=== PATIENT | female | born 1980 | race Caucasian/White ===

== ENCOUNTER 2022-02-01 13:57 | Emergency (ER) | payer OTHER ==
--- NOTE | 2022-02-01 14:39 | ERPHSYRPT ---
- History of Present Illness Historian: patient Exam Limitations: no limitations Patient Subjective Stated Complaint: pt states "I have had this sharp pain in my stomach for the past 2 days. I was suppose to go have an ultrasound sound a week ago but didn't go to it." Triage Nursing Assessment: pt ambulated into the er; pt is axo x4; c/o abd pain; 8/10 pain to upper epi gastric region; abd is round, soft, tender; hyperactive bowel in all quads; pt denies V/D; c/o nausea; mucus member pink and moist; vitals wnl Physician History: 41 yo wf w RUQ pain x 1wk. Pt was scheduled for RUQ US but missed her appointment. Pain is 8/10 and stabbing. She has had nausea wo vomiting/diarrhea/dysuria/hematuria/fever/chest pain. She has had an appendecto my and [facility]. Timing/Duration: week(s) (1wk) Activities at Onset: rest Quality: sharpness, stabbing Abdominal Pain Onset Location: RUQ Pain Radiation: no radiation Severity of Pain-Max: severe Severity of Pain-Current: severe Modifying Factors: Worsens With: analgesics, antacids, breathing, coughing, defecating, eating, exercise, lying down, movement, palpation, rest, urinating, vomiting, position, walking Associated Symptoms: nausea, No back, No chest pain, No diaphoresis, No diarrhea, No fever/chills, No fatigue, No headache, No heartburn, No loss of appetite, No neck pain, No rash, No shortness of breath, No syncope, No vomiting, No weakness Previous symptoms: same symptoms as today Allergies/Adverse Reactions: No Known Drug Allergies Allergy (Unverified 02/01/22 14:06) Hx Tetanus, Diphtheria Vaccination/Date Given: No Hx Influenza Vaccination/Date Given: Yes Hx Pneumococcal Vaccination/Date Given: No Immunizations Up to Date: Yes Travel Risk - International Travel Have you traveled outside of the country in past 3 weeks: No - Coronavirus Screening Are you exhibiting any of the following symptoms?: No Close contact with a COVID-19 positive Pt in past 14-21 Days: No - Vaccine Status Have you recieved a Covid-19 vaccination: Yes 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: [employer] - Vaccination Dates Date of 2cond Vaccination (if applicable): 12/01 - Review of Systems Constitutional: No Symptoms Eyes: No Symptoms Ears, Nose, & Throat: No Symptoms Respiratory: No Symptoms Cardiac: No Symptoms Abdominal/Gastrointestinal: No Symptoms, Abdominal Pain, Nausea Genitourinary Symptoms: No Symptoms Musculoskeletal: No Symptoms Skin: No Symptoms Neurological: No Symptoms Psychological: No Symptoms Endocrine: No Symptoms Hematologic/Lymphatic: No Symptoms Immunological/Allergic: No Symptoms - Past Medical History Pertinent Past Medical History: Yes Neurological History: Migraines ENT History: No Pertinent History Cardiac History: No Pertinent History Respiratory History: No Pertinent History Endocrine Medical History: No Pertinent History Musculoskeletal History: Degenerative Disk Disease GI Medical History: GERD History: No Pertinent History Psycho-Social History: Anxiety, Bipolar, Depression Female Reproductive Disorders: No Pertinent History - Past Surgical History Past Surgical History: Yes Neuro Surgical History: No Pertinent History Cardiac: No Pertinent History Respiratory: No Pertinent History Gastrointestinal: Appendectomy Genitourinary: No Pertinent History Musculoskeletal: No Pertinent History Female Surgical History: Hysterectomy Other Surgical History: breast reduction - Social History Smoking Status: Never smoker Exposure to second hand smoke: No Drug Use: methamphetamines Patient Lives Alone: No Significant Family History: no pertinent family hx - Female History Hx Now: No - Nursing Vital Signs Nursing Vital Signs: Initial Vital Signs Temperature 96.7 F 02/01/22 14:07 Pulse Rate 94 H 02/01/22 14:07 Respiratory Rate 14 02/01/22 14:07 Blood Pressure 121/86 02/01/22 14:07 O2 Sat by Pulse Oximetry 100 02/01/22 14:07 Pain Scale Pain Intensity 6 WNL - Physical Exam General Appearance: no apparent distress Eye Exam: PERRL/EOMI, eyes nml inspection Ears, Nose, Throat Exam: normal ENT inspection, TMs normal, pharynx normal, moist mucous membranes Neck Exam: normal inspection, non-tender, supple, full range of motion, No meningismus, No mass, No Brudzinski, No Kernig's, No carotid bruit Respiratory Exam: normal breath sounds, lungs clear, airway intact Cardiovascular Exam: regular rate/rhythm, normal heart sounds, normal peripheral pulses, capillary refill <2 sec, No murmur Gastrointestinal/Abdomen Exam: soft, tenderness (Mild RUQ ttp wo guarding or rebound) Back Exam: normal inspection, normal range of motion, No CVA tenderness, No vertebral tenderness Extremity Exam: normal inspection, normal range of motion Neurologic Exam: alert, oriented x 3, 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, 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, normal mood/affect, nml cerebellar function, nml station & gait, sensation nml Skin Exam: normal color, warm, dry Lymphatic Exam: No adenopathy SpO2 Interpretation: normal SpO2: 100 O2 Delivery: Room Air - Course Nursing assessment & vital signs reviewed: Yes - CT Exams Abdomen/Pelvis CT Interpretation: Discussed w/radiologist (Mod fecal stasis) - Radiology Ultrasound Exam Gallbladder Ultrasound: discussed w/radiologist (WNL) Ordered Tests: Active Orders 24 hr Category Date Time Status ABDOMEN AND PELVIS W CONTRAST [CT] Stat Exams 02/01/22 16:17 Taken ABDOMINAL-LIMITED [US] Stat Exams 02/01/22 15:25 Completed AMYLASE Stat Lab 02/01/22 14:40 Completed CBC W DIFF Stat Lab 02/01/22 14:40 Completed CMP Stat Lab 02/01/22 14:40 Completed LIPASE Stat Lab 02/01/22 14:40 Completed TROPONIN Q3H Lab 02/01/22 14:40 Completed TROPONIN Q3H Lab 02/01/22 18:20 Completed Medication Summary Discontinued Medications Generic Name Dose Route Start Last Admin Trade Name Freq PRN Reason Stop Dose Admin Dicyclomine HCl 20 mg 02/01/22 22:00 02/01/22 18:21 Dicyclomine Hcl 20 Mg Tablet PO 03/03/22 21:59 20 mg QID ZAINAB Administration Dicyclomine HCl Confirm 02/01/22 18:20 Dicyclomine Hcl 20 Mg Tablet Administered 02/01/22 18:21 Dose 20 mg .ROUTE .STK-MED ONE Ketorolac Tromethamine 30 mg 02/01/22 15:28 02/01/22 15:29 Ketorolac Tromethamine 30 Mg/Ml Inj IV 02/01/22 15:29 30 mg STAT ONE Administration Ketorolac Tromethamine Confirm 02/01/22 15:28 Ketorolac Tromethamine 30 Mg/Ml Inj Administered 02/01/22 15:29 Dose 30 mg .ROUTE .STK-MED ONE Lab/Rad Data: Laboratory Result Diagrams 02/01/22 14:40 02/01/22 14:40 Laboratory Results 02/01/22 02/01/22 02/01/22 Range/Units 18:20 14:54 14:40 WBC (4.0-10.5) K/mm3 RBC (4.1-5.4) M/mm3 Hgb (12.0-16.0) gm/dl Hct (35-47) % MCV (78-100) fl MCH (26-32) pg MCHC (32-36) g/dl RDW (11.5-14.0) % Plt Count (150-450) K/mm3 MPV (7.5-11.0) fl Gran % (36.0-66.0) % Eos # (Auto) (0-0.5) Absolute Lymphs (auto) (1.0-4.6) Absolute Monos (auto) (0.0-1.3) Lymphocytes % (24.0-44.0) % Monocytes % (0.0-12.0) % Eosinophils % (0.00-5.0) % Basophils % (0.0-0.4) % Absolute Granulocytes (1.4-6.9) Basophils # (0-0.4) Sodium (137-145) mmol/L Potassium (3.5-5.1) mmol/L Chloride (98-107) mmol/L Carbon Dioxide (22-30) mmol/L Anion Gap (5-15) MEQ/L BUN (7-17) mg/dL Creatinine (0.52-1.04) mg/dL Estimated GFR ML/MIN Glucose (74-106) mg/dL Calcium (8.4-10.2) mg/dL Total Bilirubin (0.2-1.3) mg/dL AST (14-36) U/L ALT (0-35) U/L Alkaline Phosphatase (38-126) U/L Troponin I < 0.012 < 0.012 (0.000-0.034) ng/mL Serum Total Protein (6.3-8.2) g/dL Albumin (3.5-5.0) g/dL Amylase (30-110) U/L Lipase (23-300) U/L Urinalys Dipstick Clnc MAIN LAB Urine Color YELLOW (YELLOW) Urine Appearance CLEAR (CLEAR) Urine pH 6.5 (5-6) Ur Specific Odon 1.020 (1.005-1.025) POC Urine Protein Conf NEGATIVE (Negative) Urine Ketones TRACE (NEGATIVE) Urine Nitrite NEGATIVE (NEGATIVE) Urine Bilirubin NEGATIVE (NEGATIVE) Urine Urobilinogen 0.2 (0-1) mg/dL Urine Leukocytes NEGATIVE (NEGATIVE) Urine WBC (Auto) NONE (0-5) /HPF Urine RBC (Auto) NONE (0-2) /HPF U Epithel Cells (Auto) RARE (FEW) /HPF Urine Bacteria (Auto) NONE (NEGATIVE) /HPF Urine RBC NEGATIVE (0-5) Magan/ul Urine Mucus (Auto) SLIGHT (NEGATIVE) /HPF Ur Culture Indicated? NO Urine Glucose NEGATIVE (NEGATIVE) mg/dL 02/01/22 02/01/22 Range/Units 14:40 14:40 WBC 6.0 (4.0-10.5) K/mm3 RBC 3.63 L (4.1-5.4) M/mm3 Hgb 10.9 L (12.0-16.0) gm/dl Hct 34.6 L (35-47) % MCV 95.3 (78-100) fl MCH 30.0 (26-32) pg MCHC 31.5 L (32-36) g/dl RDW 13.4 (11.5-14.0) % Plt Count 229 (150-450) K/mm3 MPV 10.7 (7.5-11.0) fl Gran % 48.1 (36.0-66.0) % Eos # (Auto) 0.13 (0-0.5) Absolute Lymphs (auto) 2.51 (1.0-4.6) Absolute Monos (auto) 0.46 (0.0-1.3) Lymphocytes % 41.8 (24.0-44.0) % Monocytes % 7.7 (0.0-12.0) % Eosinophils % 2.2 (0.00-5.0) % Basophils % 0.2 (0.0-0.4) % Absolute Granulocytes 2.89 (1.4-6.9) Basophils # 0.01 (0-0.4) Sodium 138 (137-145) mmol/L Potassium 3.9 (3.5-5.1) mmol/L Chloride 105 (98-107) mmol/L Carbon Dioxide 24 (22-30) mmol/L Anion Gap 13.1 (5-15) MEQ/L BUN 14 (7-17) mg/dL Creatinine 0.78 (0.52-1.04) mg/dL Estimated GFR > 60.0 ML/MIN Glucose 114 H (74-106) mg/dL Calcium 8.7 (8.4-10.2) mg/dL Total Bilirubin 0.20 (0.2-1.3) mg/dL AST 20 (14-36) U/L ALT 13 (0-35) U/L Alkaline Phosphatase 53 (38-126) U/L Troponin I (0.000-0.034) ng/mL Serum Total Protein 6.6 (6.3-8.2) g/dL Albumin 3.8 (3.5-5.0) g/dL Amylase 70 (30-110) U/L Lipase 223 (23-300) U/L Urinalys Dipstick Clnc Urine Color (YELLOW) Urine Appearance (CLEAR) Urine pH (5-6) Ur Specific Odon (1.005-1.025) POC Urine Protein Conf (Negative) Urine Ketones (NEGATIVE) Urine Nitrite (NEGATIVE) Urine Bilirubin (NEGATIVE) Urine Urobilinogen (0-1) mg/dL Urine Leukocytes (NEGATIVE) Urine WBC (Auto) (0-5) /HPF Urine RBC (Auto) (0-2) /HPF U Epithel Cells (Auto) (FEW) /HPF Urine Bacteria (Auto) (NEGATIVE) /HPF Urine RBC (0-5) Magan/ul Urine Mucus (Auto) (NEGATIVE) /HPF Ur Culture Indicated? Urine Glucose (NEGATIVE) mg/dL - Progress Progress Note: 02/01/22 18:16 30mg IV Toradol w improvement in pain 02/01/22 19:00 Bentyl 20mg po x1 Counseled pt/family regarding: lab results, diagnosis, need for follow-up, rad results - Departure Departure Disposition: Home Clinical Impression: Abdominal pain, Constipation Condition: Stable Critical Care Time: No Referrals: ARNEL MEDINA MD [Primary Care Provider] - Follow up/PCP as directed Instructions: Constipation, Adult (DC), Acute Abdomen (Belly Pain), Adult (DC) Additional Instructions: Follow up with your family MD Return to ER for increasing pain or temperature greater than 100.5 Try a mild laxative Bentyl as needed for pain Forms: Work/School Release Form Prescriptions: Dicyclomine HCl 20 mg [Bentyl 20 mg] 20 mg PO Q4HPRN PRN #14 tablet PRN Reason: Pain
[2022-02-01 15:11] LABS: Appearance CLEAR (CLEAR); Bilirubin NEGATIVE (NEGATIVE); Dipstick done @ ? MAIN LAB; Glucose NEGATIVE (NEGATIVE); Ketones TRACE (NEGATIVE); Nitrite NEGATIVE (NEGATIVE); Ph 6.5 (5-6); Protein,Urine Dip NEGATIVE (Negative); RBC NEGATIVE Ery/ul (0-5); Urobilinogen 0.2 mg/dL (0-1)
[2022-02-01 15:14] LABS: ALBUMIN 3.8 g/dL (3.5-5.0); ALKALINE PHOSPHATASE 53 U/L (38-126); AMYLASE 70 U/L (30-110); ANION GAP 13.1 MEQ/L (5-15); BLOOD UREA NITROGEN 14 mg/dL (7-17); CHLORIDE 105 mmol/L (98-107); Calcium 8.7 mg/dL (8.4-10.2); Carbon Dioxide 24 mmol/L (22-30); Creatinine 1 0.78 mg/dL (0.52-1.04); EST GLOMERULAR FILTRATION RATE > 60.0 ML/MIN; Glucose 114 mg/dL (74-106); LIPASE 223 U/L (23-300); Potassium 3.9 mmol/L (3.5-5.1); SGOT/AST 20 U/L (14-36); SGPT/ALT 13 U/L (0-35); SODIUM 138 mmol/L (137-145); Total Protein 6.6 g/dL (6.3-8.2)
[2022-02-01 15:21] LABS: Absolute Neutrophil Ct (ANC) 2.89 (1.4-6.9); Basophil (Absolute #) 0.01 (0-0.4); Eosinophil % 2.2 % (0.00-5.0); Eosinophil (Absolute #) 0.13 (0-0.5); Hematocrit 34.6 % (35-47); Hemoglobin 10.9 gm/dl (12.0-16.0); Lymphocyte (Absolute #) 2.51 (1.0-4.6); Lymphocytes % 41.8 % (24.0-44.0); Mean Cell Volume 95.3 fl (78-100); Mean Corpuscular Hgb Concent. 31.5 g/dl (32-36); Mean Platelet Volume 10.7 fl (7.5-11.0); Monocyte (Absolute #) 0.46 (0.0-1.3); Monocytes % 7.7 % (0.0-12.0); Neutrophil % 48.1 % (36.0-66.0); Platelet Count 229 K/mm3 (150-450); Red Blood Count 3.63 M/mm3 (4.1-5.4); Red Cell Distribution Width 13.4 % (11.5-14.0)
[2022-02-01 15:21] LABS: Epithelial Cells RARE /HPF (FEW); Mucus SLIGHT /HPF (NEGATIVE)
[2022-02-01] MEDS ORDERED: TORAdol 30 mg Injection ONE (15:28)
[2022-02-01] MEDS ORDERED: TORAdol 30 mg Injection IV ONE (15:28)
[2022-02-01 15:34] LABS: Urine Cultured Indicated? NO
--- NOTE | 2022-02-01 16:28 | XRAY ---
Indication: Right upper quadrant pain. Two-dimensional right upper quadrant abdominal sonogram performed. Comparison: None Gallbladder normally distended without gallstones, wall thickening, or pericholecystic fluid. Common bile duct measures 3.5 mm. No intrahepatic biliary distention. Remaining visualized liver and right kidney are sonographically unremarkable. Right kidney measures 11.3 cm in length. Pancreas obscured due to overlying bowel gas. Impression: Nonvisualization pancreas. Remaining right upper quadrant sonogram is negative.
[2022-02-01] MEDS ORDERED: BENTYL 20 MG ONE (18:20)
[2022-02-01 18:28] VITALS: BP 122/80; PULSE 88
[2022-02-01 19:01] VITALS: O2SAT 100
[2022-02-01] MEDS ORDERED: BENTYL 20 MG PO SCH (22:00)
--- NOTE | 2022-02-02 08:44 | XRAY ---
Indication: Right upper quadrant pain. Nausea. Multiple contiguous axial images obtained through the abdomen and pelvis using 80 cc Isovue 370 contrast. Comparison: None Lung bases clear. Heart not enlarged. Stomach is distended with food/fluid. Noncontrasted stomach and bowel loops appear nonobstructed. There is moderate diffuse scattered colonic fecal debris throughout. Appendectomy and hysterectomy reported. No free fluid/air. Gallbladder partially contracted without gallstones. Remaining liver, gallbladder, pancreas, spleen, adrenal glands, kidneys, ureters, bladder, and aorta appear unremarkable. No pathologic retroperitoneal lymphadenopathy. Osseous structures intact. No ventral or inguinal hernias. Impression: 1. Diffuse fecal stasis. 2. Remaining CT abdomen/pelvis with contrast exam is negative.
== END 2022-02-01 18:33 | disposition home or self-care (01) ==
LOC: ED 13:57
DX: K59.00 Constipation, unspecified (principal); R10.11 Right upper quadrant pain; R11.0 Nausea; K21.9 Gastro-esophageal reflux disease without esophagitis
CPT/HCPCS: 36415; 74177; 76705; 80053; 81015; 82150; 83690; 84484; 85025; 96374; 99284; J1885; A9270-GY

== ENCOUNTER 2022-09-17 06:40 | Day surgery (SDC) | payer BC, OTHER ==
[2022-09-17] MEDS ORDERED: Lactated Ringers 1,000 ML IV ONE ×3 (06:55→13:55)
[2022-09-17] MEDS ORDERED: CEFAZOLIN 2 GM-D5W BAG** 2 GM/50 ML ML IV ONE (07:05)
[2022-09-17] MEDS ORDERED: Lactated Ringers 1,000 ML IV SCH (07:30)
[2022-09-17] MEDS ORDERED: CEFAZOLIN 2 GM-D5W BAG** 2 GM/50 ML ML IV SCH (07:30)
[2022-09-17] MEDS ORDERED: VERSED 5 MG/5 ML ONE (09:14)
[2022-09-17] MEDS ORDERED: Marcaine 0.5%/Epinephrine 10 ML ONE (09:51)
[2022-09-17] MEDS ORDERED: Xylocaine-Mpf 2% 5 Ml Vial ONE (09:51)
[2022-09-17 14:15] LABS: Appearance CLEAR (CLEAR); Glucose NEGATIVE (NEGATIVE)
[2022-09-17 14:16] LABS: Bilirubin NEGATIVE (NEGATIVE); Dipstick done @ ? MAIN LAB; Ketones TRACE (NEGATIVE); Nitrite NEGATIVE (NEGATIVE); Protein,Urine Dip NEGATIVE (Negative); RBC NEGATIVE Ery/ul (0-5); Urobilinogen 0.2 mg/dL (0-1)
--- NOTE | 2022-09-17 15:02 | XRAY ---
Indication: Right gastrocnemius resection with calcaneal autographed, tarsometatarsal arthrodesis, and tailor's bunion correction. Intraoperative fluoroscopy provided for 6 minutes 31 seconds. 32 digital spot images submitted for interpretation demonstrates 1st-3rd tarsometatarsal fusion with multiple fixation plates/screws and osteotomy distal 5th metatarsal with bridging fixation plate/screws. Correlate with intraoperative findings/report.
[2022-09-17 16:49] VITALS: BP 106/67; PULSE 97; O2SAT 97
--- NOTE | 2022-09-20 09:46 | XRAY ---
6 minutes and 31 seconds of fluoroscopy was used in surgery for a right foot gastrocnemius resection with calcaneal autographed, tarsometatarsal arthrodesis, and tailor's bunion correction.
--- NOTE | 2022-09-20 09:46 | OP ---
SURGERY DATE/TIME: 09/17/2022 1034 PREOPERATIVE DIAGNOSES: 1) Gastrocnemius equinus. 2) Metadductus. 3) Equinus peroneus brevis. 4) Rheumatoid arthritis. 5) Right foot pain. POSTOPERATIVE DIAGNOSES: 1) Gastrocnemius equinus. 2) Metadductus. 3) Equinus peroneus brevis. 4) Rheumatoid arthritis. 5) Right foot pain. PROCEDURES: 1) Gastrocnemius resection, right. 2) Calcaneal autograft. 3) Multiple transverse tarsometatarsal joint arthrodesis with correction of bunion and metadductus deformity. 4) Correction of Tailor's bunion. SURGEON: John Dalton DPM. GAS CUTTING MACHINE OPERATOR: None. ANESTHESIA: General plus a preoperative popliteal and adductor canal block. See anesthesia report for details. HEMOSTASIS: Thigh tourniquet set to 350 mm of Mercury for approximately 144 total tourniquet time minutes with a 15 minute break at the 2 hour richie. ESTIMATED BLOOD LOSS: Less than 15 cc. MATERIALS: Tran 3.5 inline fusion with a 4.0 x 36 headed fully threaded cannulated screw. Two - 2.5 ALPS inline screws and one - 1.5 ALPS small T-plate with 1 cc of Bonus Triad as well as bone marrow aspirate. INJECTABLES: See anesthesia report for details. INDICATION FOR SURGERY: Jerome is a very pleasant 41-year-old female patient who is known to my service for pain associated with a bunion as well as Tailor's bunion to the right lower extremity. X-rays were taken and her condition was discussed demonstrating that the patient does not only have just a bunion but she also does have metadductus which is driving the majority of her pain at the forefoot. Discussion regarding the options of treatment. The patient has exhausted all conservative modalities of treatment at this time including but not limited to accommodative shoe gear, change in occupation, orthotics and injections. At this time the patient has exhausted these modalities and wishes to proceed with surgical intervention. No guarantees were provided as to the outcome. All risks, complications and benefits of surgical intervention were discussed with the patient in depth including but not limited to infection, hematoma, seroma, possibility of delayed skin healing, nonskin healing, possibility of nonbone healing and possibility of delayed bone healing. Plenty of time was allowed for the patient to ask questions which were answered to her apparent satisfaction. It is with that we decided to proceed. DESCRIPTION OF PROCEDURE AND FINDINGS: The patient was brought into the OR and placed on the OR table in the supine position. At this time general anesthesia was administered until the patient was sedated. A well-padded tourniquet was applied to the patient's right thigh. The patient's right leg was then prepped and draped in the typical sterile fashion and lowered onto the surgical field. At this time attention was directed to the posterior medial aspect of the palpable dell where the gastrocnemius muscle belly and the muscular tendinous junction began. At this time a linear incision approximately 3 cm in length was made. Blunt dissection was carried down making sure not to damage any neurovascular structures along the way. At this time the fascia was identified, incised and the gastrocnemius aponeurosis was identified. At this time a pediatric speculum was introduced and opened. The gastrocnemius muscle aponeurosis was then lengthened utilizing a 10 blade under direct visualization being careful not to damage the sural nerve underlying this side of the incision. At this time copious amounts of sterile saline were utilized to flush the surgical site. 2-0 Vicryl was then utilized to coapt the subcutaneous tissue in a simple interrupted-type fashion and a 3-0 Nylon was then utilized to coapt the skin in horizontal mattress-type fashion. At this time attention was directed to the lateral aspect of the calcaneus fluoroscopically. An identifiable section of base of the calcaneus was identified and that incision was carried out this was deepened utilizing a curved mini-hemostat down to the level of bone. A 2-0 drill was utilized to fenestrate the surface and calcaneal autograft was poured utilizing increasingly enlarging sizes of curette this was handed off for later use in the case. At this time the Esmarch was utilized to exsanguinate the leg which was set to 350 mm of Mercury. Attention was directed over the dorsal aspect of the foot where a linear incision was made in between the second and third tarsometatarsal joint which was deepened being careful not to damage any neurovascular structures along the way. The second and third tarsometatarsal joints were identified. A linear cut was made through the tarsometatarsal joint and a wedge was taken with the wedge oriented to the lateral aspect in order to swing the metatarsal edge to more rectus position relative to the mid foot this was carried out utilizing a sagittal saw. After the resection was carried out, attention was turned to the medial aspect where the dissection for the first tarsometatarsal joint arthrodesis was carried out and then a lateral release was carried out prior to fixation. Copious amounts of sterile saline was used to flush both of these sites. Fixation was accomplished utilizing two - 2.5 ALPS inline fusion plates with a combination of locking and nonlocking screws for the second and third tarsometatarsal joints. At this time attention was directed back to the first tarsometatarsal joint where a cut was made into the first cuneiform parallel to the second cuneiform base resecting out the atavistic cuneiform. At this time a small wedge of bone was resected from the proximal first metatarsal. At this time the plantar medial aspect of the metatarsal was checked for adequate resection. Copious amounts of sterile saline were utilized to flush the site. The joint was prepped utilizing a 2-0 drill and osteotome. Following this, temporary fixation was carried out utilizing K-wires. A compression screw and a 4-hole locking plate was introduced to the lateral aspect of the first tarsometatarsal arthrodesis site gaining excellent compression over the fusion site. This was checked under fluoroscopic guidance and deemed to be adequate. At this time the position was deemed to be adequate and attention was directed to the Tailor bunion on the lateral aspect of the foot. A very small incision was made over the lateral aspect of the forefoot where a sagittal saw was introduced resecting the metatarsal head in a transverse orientation at the metatarsal neck area. 1.5 mm ALPS small T-plate was then introduced into the majority of the cavity infiltrated utilizing 2.5 mm screw proximally in perfect siletz tribe-type fashion through the bone into the plate to the medial cortex. At this time the head was fixated with a single 2.5 mm screw. At this time copious amounts of sterile saline were utilized to flush the surgical site. 4-0 Monocryl was utilized to carry out the remaining subcutaneous skin edges. 3-0 Nylon in a horizontal mattress-type fashion in order to protect the tattoo on the dorsal aspect of her foot. 4-0 Nylon was utilized to coapt this incision under very careful inspection as not to damage the tattoo or distort it in any way. The incision was cleansed with sterile saline. Tourniquet was let down a total of 144 total tourniquet minutes. Dressing consisting of Betadine, Adaptic, 4x4, Kerlix and PATRIC as well as a well-padded posterior splint with Sugar-Tong was applied to the patient's right lower extremity with the foot orthogonal relative to the longitudinal axis of the leg. At this time the patient was then reversed from anesthesia and returned to the postoperative anesthesia care unit with vital signs stable and vascular status intact. The patient handled the anesthesia as well as the procedure without significant complication. Postoperative orders as indicated in the patient's discharge chart.
== END 2022-09-17 17:15 | disposition home or self-care (01) ==
LOC: SDC 06:40
PROVIDERS: ATTEND Podiatrist Foot & Ankle Surgery
DX: M21.6X1 Other acquired deformities of right foot (principal); M76.71 Peroneal tendinitis, right leg; M06.9 Rheumatoid arthritis, unspecified; M79.671 Pain in right foot
CPT/HCPCS: 64450; 73630; 76000; 76937; 76942; 81001; 87086; C1713; J0690; J2250

== ENCOUNTER 2022-09-18 19:33 | Emergency (ER) | payer BC, OTHER ==
[2022-09-18] MEDS ORDERED: Zofran 4 MG/2 ML VIAL IV ONE (19:34)
[2022-09-18] MEDS ORDERED: DIPRIVAN 200 MG/20 ML IV ONE (19:34)
[2022-09-18] MEDS ORDERED: Naropin 0.5% 30 ML VIAL IJ ONE (19:34)
[2022-09-18] MEDS ORDERED: Decadron 4 MG INJ IV ONE (19:34)
[2022-09-18] MEDS ORDERED: Zemuron 100 MG/10 ML IJ ONE (19:34)
[2022-09-18] MEDS ORDERED: SUBLIMAZE 100 MCG/2 ML IV ONE (19:34)
[2022-09-18] MEDS ORDERED: BRIDION 200MG/2ML IV ONE (19:34)
[2022-09-18] MEDS ORDERED: PHENYLEPHRINE HCL IJ ONE (19:34)
[2022-09-18] MEDS ORDERED: Xylocaine-Mpf 2% 5 Ml Vial IJ ONE (19:34)
[2022-09-18] MEDS ORDERED: MORPHINE SULFATE 4 MG INJ IM ONE (20:07)
--- NOTE | 2022-09-18 20:14 | ERPHSYRPT ---
- History of Present Illness Time Seen by Provider: 09/18/22 19:49 Source: patient Exam Limitations: no limitations Patient Subjective Stated Complaint: pt states she had surgery yesterday. states today arouand 1800 she began having severe burning pain in her foot. Triage Nursing Assessment: pt alert and oriented, answers questions approp. pt ambulates into room with crutches, nwb on rt lower ext. drsg to rt foot clean and dry. toes exposed on arrival. toes cool, cap refill less than 3 sec. Physician History: 41 years old female postop day 1 midfoot fusion by podiatry presented in the ER with increasing pain swelling and burning sensation in the right foot. Patient reports she has been taking pain medication with no significant relief. Reports having pain with movements of toes. Denies any fall or trauma. Patient thinks it is because of her dressing which is too tight. No bluish discoloration of toes. Timing/Duration: today, gradual onset, worse Severity: moderate Modifying Factors: Improves With: rest, nothing Associated Symptoms: denies symptoms Allergies/Adverse Reactions: No Known Drug Allergies Allergy (Verified 09/18/22 19:57) Home Medications: Cholecalciferol (Vitamin D3) [Vitamin D] 50,000 iu PO WEEKLY 09/17/22 [History] Tirzepatide [Mounjaro] 2.5 mg PO WEEKLY 09/17/22 [History] predniSONE [Prednisone] 5 mg PO DAILY 09/17/22 [History] Hx Tetanus, Diphtheria Vaccination/Date Given: No Hx Influenza Vaccination/Date Given: Yes Hx Pneumococcal Vaccination/Date Given: No Travel Risk - International Travel Have you traveled outside of the country in past 3 weeks: No - Coronavirus Screening Are you exhibiting any of the following symptoms?: No Close contact with a COVID-19 positive Pt in past 14-21 Days: No - Vaccine Status Have you recieved a Covid-19 vaccination: Yes 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[employer] - Vaccination Dates Date of 2cond Vaccination (if applicable): 12/01 - Review of Systems Constitutional: No Symptoms Ears, Nose, & Throat: No Symptoms Respiratory: No Symptoms Cardiac: No Symptoms Abdominal/Gastrointestinal: Constipation Genitourinary Symptoms: No Symptoms Musculoskeletal: Injury Skin: No Symptoms Neurological: No Symptoms Endocrine: No Symptoms Hematologic/Lymphatic: No Symptoms Immunological/Allergic: No Symptoms - Past Medical History Pertinent Past Medical History: Yes Neurological History: Migraines ENT History: No Pertinent History Cardiac History: No Pertinent History Respiratory History: No Pertinent History Endocrine Medical History: No Pertinent History Musculoskeletal History: Degenerative Disk Disease, Rheumatoid Arthritis GI Medical History: GERD History: No Pertinent History Psycho-Social History: Anxiety, Bipolar, Depression Female Reproductive Disorders: No Pertinent History - Past Surgical History Past Surgical History: Yes Neuro Surgical History: No Pertinent History Cardiac: No Pertinent History Respiratory: No Pertinent History Gastrointestinal: Appendectomy Genitourinary: No Pertinent History Musculoskeletal: No Pertinent History, Orthopedic Surgery Female Surgical History: Hysterectomy Other Surgical History: breast reduction, rt foot surgery - Social History Smoking Status: Never smoker Exposure to second hand smoke: No Drug Use: none Patient Lives Alone: Yes Significant Family History: no pertinent family hx - Female History Hx Last Menstrual Period: hyster Hx Now: No - Nursing Vital Signs Nursing Vital Signs: Initial Vital Signs Temperature 97.4 F 09/18/22 19:40 Pulse Rate 98 H 09/18/22 19:40 Respiratory Rate 16 09/18/22 19:40 Blood Pressure 111/82 09/18/22 19:40 O2 Sat by Pulse Oximetry 100 09/18/22 19:40 Pain Scale Pain Intensity 10 - Physical Exam General Appearance: no apparent distress Eye Exam: PERRL/EOMI Ears, Nose, Throat Exam: normal ENT inspection Neck Exam: normal inspection, full range of motion Respiratory Exam: normal breath sounds, lungs clear Cardiovascular Exam: regular rate/rhythm, normal heart sounds Gastrointestinal/Abdomen Exam: soft, normal bowel sounds, No tenderness Back Exam: normal inspection, normal range of motion Extremity Exam: other (Right foot and splint/cast. Cap refill less than 3 seconds. Intact movements of the toes.) Neurologic Exam: alert, oriented x 3, cooperative SpO2 Interpretation: normal SpO2: 100 O2 Delivery: Room Air Ordered Tests: Medication Summary Discontinued Medications Generic Name Dose Route Start Last Admin Trade Name Freq PRN Reason Stop Dose Admin Morphine Sulfate 4 mg 09/18/22 20:07 Morphine Sulfate 4 Mg/Ml Injection IM 09/18/22 20:08 STAT ONE - Progress Progress: improved Progress Note: 09/18/22 21:[address] Lopez, recommended loosening David bandage, and dose of pain medication and see how her symptoms are. Patient is given pain medication and bandage readjusted, pain is better. Podiatry thinks it is probably because of the wearing off of block. Recommended outpatient follow-up early next week. Counseled pt/family regarding: diagnosis, need for follow-up - Departure Departure Disposition: Home Clinical Impression: Acute postoperative pain of right foot Condition: Stable Critical Care Time: No Referrals: ARNEL MEDINA MD [Primary Care Provider] - Follow up/PCP as directed CONCEPCION HENLEY DPM [ACTIVE STAFF] - Follow up/PCP as directed (In 2 days for reevaluation) Additional Instructions: Keep it elevated, take pain medication which you have as recommended. Follow-up with podiatry for reevaluation. Return to ER for worsening pain, bluish discoloration of toes, numbness or difficulty movements of toes etc. per
[2022-09-18] MEDS ORDERED: MORPHINE SULFATE 4 MG INJ ONE (20:25)
[2022-09-18 21:08] VITALS: BP 107/73; PULSE 88; O2SAT 99
== END 2022-09-18 21:18 | disposition home or self-care (01) ==
LOC: ED 19:33
DX: G89.18 Other acute postprocedural pain (principal); M79.671 Pain in right foot; Z79.52 Long term (current) use of systemic steroids; Z79.85 Long-term (current) use of injectable non-insulin antidiabetic drugs
CPT/HCPCS: 96372; 99283; J1100; J2270; J2370; J2405; J2704; J2795; J3010

== ENCOUNTER 2022-09-25 23:22 | Emergency (ER) | payer BC, OTHER ==
[2022-09-25] MEDS ORDERED: TORAdol 30 mg Injection IM ONE (23:48)
--- NOTE | 2022-09-25 23:55 | ERPHSYRPT ---
- History of Present Illness Time Seen by Provider: 09/25/22 23:36 Source: patient Exam Limitations: no limitations Patient Subjective Stated Complaint: shortness of breath and pain to left arm at elbow area Triage Nursing Assessment: pt ambulated into ER on crutches due to recent foot surgery on 09/17/22. Pt c/o sob which started around 10pm tonight and pain to left elbow for a few days. Pt does not appear to be sob. Lungs clear, heart tones reg, O2 sats 98% on rm air. Pt states, "my left elbow is sore and I don't know what's causing it". Pt is able to move left arm/elbow without diff. Physician History: 42-year-old female with recent left foot surgery almost a week ago presented in the ER with 2 to 3 days history of shortness of breath especially with activity and better with resting. Also reports some pain with deep breathing. No chest pain or pressure otherwise. Patient reports having some tightness swelling and dull aching pain in the left arm. She has an IV placed then. This has been going on for 2 to 3 days as well. Timing/Duration: day(s) (2), intermittent Activities at Onset: activity Severity of Dyspnea-Max: mild Severity of Dyspnea-Current: none Possible Cause: unknown cause Modifying Factors: Worsens With: exertion Associated Symptoms: painful breathing, tightness, No cough, No heaviness, No heart racing Allergies/Adverse Reactions: No Known Drug Allergies Allergy (Verified 09/25/22 23:34) Home Medications: Cholecalciferol (Vitamin D3) [Vitamin D] 50,000 iu PO WEEKLY 09/17/22 [History] Tirzepatide [Mounjaro] 2.5 mg PO WEEKLY 09/17/22 [History] Aspirin EC 325 mg [Ecotrin 325 MG] 325 mg PO DAILY 09/25/22 [History] Cephalexin Mh 500 mg [Keflex 500 mg] 500 mg PO TID 09/25/22 [History] Hydrocodone/Acetaminophen [Hydrocodone-Acetamin 10-325 mg] 1 tab PO Q6HPRN PRN 09/25/22 [History] Hx Tetanus, Diphtheria Vaccination/Date Given: No Hx Influenza Vaccination/Date Given: Yes Hx Pneumococcal Vaccination/Date Given: No Travel Risk - International Travel Have you traveled outside of the country in past 3 weeks: No - Coronavirus Screening Are you exhibiting any of the following symptoms?: Yes Symptoms: Shortness of Breath Close contact with a COVID-19 positive Pt in past 14-21 Days: No - Vaccine Status Have you recieved a Covid-19 vaccination: No 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 - Review of Systems Constitutional: No Symptoms Eyes: No Symptoms Ears, Nose, & Throat: No Symptoms Respiratory: Cough, Dyspnea Cardiac: No Symptoms Abdominal/Gastrointestinal: No Symptoms Genitourinary Symptoms: No Symptoms Musculoskeletal: Myalgias Skin: No Symptoms Neurological: No Symptoms Psychological: No Symptoms Endocrine: No Symptoms Hematologic/Lymphatic: No Symptoms Immunological/Allergic: No Symptoms - Past Medical History Pertinent Past Medical History: Yes Neurological History: Migraines ENT History: No Pertinent History Cardiac History: No Pertinent History Respiratory History: No Pertinent History Endocrine Medical History: No Pertinent History Musculoskeletal History: Degenerative Disk Disease, Rheumatoid Arthritis, Other GI Medical History: GERD History: No Pertinent History Psycho-Social History: Anxiety, Bipolar, Depression Female Reproductive Disorders: No Pertinent History Other Medical History: separtion 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 - Past Surgical History Past Surgical History: Yes Neuro Surgical History: No Pertinent History Cardiac: No Pertinent History Respiratory: No Pertinent History Gastrointestinal: Appendectomy Genitourinary: No Pertinent History Musculoskeletal: No Pertinent History, Orthopedic Surgery Female Surgical History: Hysterectomy Other Surgical History: breast reduction, rt foot surgery - Social History Smoking Status: Current every day smoker Exposure to second hand smoke: No Drug Use: none Patient Lives Alone: Yes Significant Family History: no pertinent family hx - Female History Hx Now: No - Nursing Vital Signs Nursing Vital Signs: Initial Vital Signs Temperature 96.1 F 09/25/22 23:23 Pulse Rate 91 H 09/25/22 23:23 Respiratory Rate 16 09/25/22 23:23 Blood Pressure 120/78 09/25/22 23:23 O2 Sat by Pulse Oximetry 98 09/25/22 23:23 Pain Scale Pain Intensity 5 - Physical Exam General Appearance: no apparent distress, alert, anxiety Eye Exam: PERRL/EOMI Ears, Nose, Throat Exam: hearing grossly normal, normal ENT inspection, normal pharynx Neck Exam: normal inspection, non-tender, supple, full range of motion Respiratory Exam: normal breath sounds, lungs clear Cardiovascular/Chest Exam: normal heart sounds, regular rate/rhythm Abdominal/Gastrointestinal Exam: soft, normal bowel sounds, No tenderness Extremity Exam: non-tender, normal range of motion Neurologic Exam: alert, oriented x 3, cooperative Skin Exam: normal color SpO2 Interpretation: normal SpO2: 98 O2 Delivery: Room Air - Course EKG Interpreted by Me: RATE (71), Sinus Rhythm, NORMAL AXIS, NORMAL INTERVALS, NORMAL QRS Ordered Tests: Active Orders 24 hr Category Date Time Status EKG-ER Only STAT Care 09/25/22 23:55 Active CHEST 1 VIEW (PORTABLE) Stat Exams 09/25/22 23:48 Taken VENOUS UNILAT/LIMITED EXTREMIT [US] Stat Exams 09/26/22 00:28 Ordered CBC W DIFF Stat Lab 09/25/22 00:37 Completed CMP Stat Lab 09/25/22 00:37 Completed D-DIMER QUANTITATIVE Stat Lab 09/25/22 00:37 Received NT PRO BNP Stat Lab 09/25/22 00:37 Completed TROPONIN Q4H Lab 09/25/22 00:37 Received TROPONIN Q4H Lab 09/26/22 03:48 Ordered TROPONIN Q4H Lab 09/26/22 07:48 Ordered Medication Summary Discontinued Medications Generic Name Dose Route Start Last Admin Trade Name Freq PRN Reason Stop Dose Admin Ketorolac Tromethamine 30 mg 09/25/22 23:48 09/25/22 23:53 Ketorolac Tromethamine 30 Mg/Ml Inj IM 09/25/22 23:49 30 mg STAT ONE Administration Lab/Rad Data: Laboratory Result Diagrams 09/25/22 00:37 09/25/22 00:37 Laboratory Results 09/25/22 09/25/22 Range/Units 00:37 00:37 WBC 7.3 (4.0-10.5) x10^3/uL RBC 3.71 L (4.1-5.4) x10^6/uL Hgb 11.4 L (12.0-16.0) g/dL Hct 35.3 (35-47) % MCV 95.1 (78-100) fL MCH 30.7 (26-32) pg MCHC 32.3 (32-36) g/dL RDW 12.4 (11.5-14.0) % Plt Count 253 (150-450) x10^3/uL MPV 10.7 (7.5-11.0) fL Gran % 58.6 (36.0-66.0) % Immature Gran % (Auto) 0.3 (0.00-0.4) % Nucleat RBC Rel Count 0.0 (0.00-0.1) % Eos # (Auto) 0.08 (0-0.5) x10^3/uL Immature Gran # (Auto) 0.02 (0.00-0.03) x10^3u/L Absolute Lymphs (auto) 2.41 (1.0-4.6) x10^3/uL Absolute Monos (auto) 0.47 (0.0-1.3) x10^3/uL Absolute Nucleated RBC 0.00 (0.00-0.01) x10^3u/L Lymphocytes % 33.1 (24.0-44.0) % Monocytes % 6.4 (0.0-12.0) % Eosinophils % 1.1 (0.00-5.0) % Basophils % 0.5 (0.0-0.4) % Absolute Granulocytes 4.27 (1.4-6.9) x10^3/uL Basophils # 0.04 (0-0.4) x10^3/uL Sodium 136 L (137-145) mmol/L Potassium 3.6 (3.5-5.1) mmol/L Chloride 106 (98-107) mmol/L Carbon Dioxide 23 (22-30) mmol/L Anion Gap 10.1 (5-15) MEQ/L BUN 10 (7-17) mg/dL Creatinine 0.55 (0.52-1.04) mg/dL Estimated GFR > 60.0 ML/MIN Glucose 106 (74-106) mg/dL Calcium 8.7 (8.4-10.2) mg/dL Total Bilirubin 0.30 (0.2-1.3) mg/dL AST 29 (14-36) U/L ALT 22 (0-35) U/L Alkaline Phosphatase 58 (38-126) U/L NT-Pro-B Natriuret Pep 39.7 (0-450) pg/mL Serum Total Protein 6.8 (6.3-8.2) g/dL Albumin 3.8 (3.5-5.0) g/dL - Departure Departure Disposition: Home Clinical Impression: Dyspnea, Arm pain, left Condition: Stable Critical Care Time: No Referrals: ARNEL MEDINA MD [Primary Care Provider] - Follow Up with PCP/3 days Instructions: Shortness of Breath (Dyspnea) (DC) Additional Instructions: Take Tylenol/ibuprofen as needed for pain. Follow-up with primary care for reevaluation. Return to ER if having worsening of difficulty breathing, swelling in the arm, pain, fever chills etc.
[2022-09-26 00:40] LABS: Absolute Neutrophil Ct (ANC) 4.27 x10^3/uL (1.4-6.9); Basophil (Absolute #) 0.04 x10^3/uL (0-0.4); Eosinophil % 1.1 % (0.00-5.0); Eosinophil (Absolute #) 0.08 x10^3/uL (0-0.5); Hematocrit 35.3 % (35-47); Hemoglobin 11.4 g/dL (12.0-16.0); Lymphocyte (Absolute #) 2.41 x10^3/uL (1.0-4.6); Lymphocytes % 33.1 % (24.0-44.0); Mean Cell Volume 95.1 fL (78-100); Mean Corpuscular Hemoglobin 30.7 pg (26-32); Mean Corpuscular Hgb Concent. 32.3 g/dL (32-36); Mean Platelet Volume 10.7 fL (7.5-11.0); Monocyte (Absolute #) 0.47 x10^3/uL (0.0-1.3); Monocytes % 6.4 % (0.0-12.0); Neutrophil % 58.6 % (36.0-66.0); Platelet Count 253 x10^3/uL (150-450); Red Blood Count 3.71 x10^6/uL (4.1-5.4); Red Cell Distribution Width 12.4 % (11.5-14.0); White Blood Count 7.3 x10^3/uL (4.0-10.5)
[2022-09-26 01:01] LABS: ALBUMIN 3.8 g/dL (3.5-5.0); ALKALINE PHOSPHATASE 58 U/L (38-126); ANION GAP 10.1 MEQ/L (5-15); BLOOD UREA NITROGEN 10 mg/dL (7-17); CHLORIDE 106 mmol/L (98-107); Calcium 8.7 mg/dL (8.4-10.2); Carbon Dioxide 23 mmol/L (22-30); Creatinine 1 0.55 mg/dL (0.52-1.04); EST GLOMERULAR FILTRATION RATE > 60.0 ML/MIN; Glucose 106 mg/dL (74-106); NT PRO BNP 39.7 pg/mL (0-450); Potassium 3.6 mmol/L (3.5-5.1); SGOT/AST 29 U/L (14-36); SGPT/ALT 22 U/L (0-35); SODIUM 136 mmol/L (137-145); Total Protein 6.8 g/dL (6.3-8.2)
[2022-09-26 03:09] VITALS: BP 117/72; PULSE 103; O2SAT 96
--- NOTE | 2022-09-26 08:14 | XRAY ---
Indication: Pain and swelling following surgery. Two-dimensional sonogram and color Doppler imaging of the major venous vessels of the left upper extremity performed. Comparison: None No thrombus seen in the visualized left internal jugular, subclavian, axillary, basilic, brachial, cephalic, radial, and ulnar veins. Veins demonstrate normal compressibility and normal venous waveforms. Impression: Left upper extremity negative for venous thrombosis. Comment: Preliminary report was given.
--- NOTE | 2022-09-26 08:18 | XRAY ---
Indication: Short of breath. Elevated d-dimer. Status post right leg surgery. Pulmonary embolus. Multiple contiguous axial images obtained through the chest using 100 cc Isovue 370 contrast and pulmonary embolus protocol. Comparison: None Good opacification of the pulmonary arteries to include the lobar and segmental branches. No pulmonary embolus. Heart not enlarged. Aorta is normal in course and caliber. Small mediastinal calcified nodes. No pathologic mediastinal/hilar lymphadenopathy. Lungs demonstrates mild pulmonary emphysema. No suspicious pulmonary mass, infiltrate, effusion, or pneumothorax. Bony thorax intact with mild degenerative changes throughout spine. Limited upper abdomen demonstrates moderately distended gallbladder without gallstones. Impression: 1. Negative pulmonary embolus. No acute cardiopulmonary mellitus. 2. Distended gallbladder better evaluated with sonogram if clinically warranted. Comment: Preliminary interpretation made by C. No critical discrepancy.
--- NOTE | 2022-09-26 08:18 | XRAY ---
Indication: Short of breath. Comparison: None Portable chest demonstrates normal heart and lungs. Bony thorax intact with mild degenerative changes.
== END 2022-09-26 03:13 | disposition home or self-care (01) ==
LOC: ED 23:22
DX: R06.00 Dyspnea, unspecified (principal); M79.602 Pain in left arm; Z79.891 Long term (current) use of opiate analgesic; Z79.899 Other long term (current) drug therapy; Z72.0 Tobacco use
CPT/HCPCS: 36000; 36415; 71045; 71260; 80053; 83880; 84484; 85025; 85379; 93005; 93971; 96372; 99284; J1885

== ENCOUNTER 2022-12-03 06:16 | Day surgery (SDC) | payer BC, OTHER ==
[2022-12-03] MEDS ORDERED: Marcaine Mpf 0.5% Vial 30 Ml ONE (06:30)
[2022-12-03] MEDS ORDERED: XYLOCAINE 1% HCL 20 ML MDV ONE (06:30)
[2022-12-03] MEDS ORDERED: Transderm Scop 1.5MG Patch TOP PRN (06:54)
[2022-12-03] MEDS ORDERED: CEFAZOLIN 2 GM-D5W BAG** 2 GM/50 ML ML IV SCH (07:00)
[2022-12-03] MEDS ORDERED: Lactated Ringers 1,000 ML IV SCH (07:00)
[2022-12-03 07:39] LABS: Hematocrit 39.7 % (35-47); Hemoglobin 12.7 g/dL (12.0-16.0); Mean Cell Volume 95.7 fL (78-100); Mean Corpuscular Hemoglobin 30.6 pg (26-32); Platelet Count 260 x10^3/uL (150-450); Red Blood Count 4.15 x10^6/uL (4.1-5.4); Red Cell Distribution Width 13.4 % (11.5-14.0); White Blood Count 5.6 x10^3/uL (4.0-10.5)
[2022-12-03 07:52] LABS: ALBUMIN 4.1 g/dL (3.5-5.0); ALKALINE PHOSPHATASE 73 U/L (38-126); ANION GAP 12.3 MEQ/L (5-15); BLOOD UREA NITROGEN 22 mg/dL (7-17); CHLORIDE 105 mmol/L (98-107); Calcium 8.9 mg/dL (8.4-10.2); Carbon Dioxide 30 mmol/L (22-30); Creatinine 1 0.61 mg/dL (0.52-1.04); EST GLOMERULAR FILTRATION RATE > 60.0 ML/MIN; Glucose 108 mg/dL (74-106); Potassium 4.4 mmol/L (3.5-5.1); SGOT/AST 71 U/L (14-36); SGPT/ALT 106 U/L (0-35); SODIUM 142 mmol/L (137-145); Total Protein 7.1 g/dL (6.3-8.2)
[2022-12-03] MEDS ORDERED: DIPRIVAN 200 MG/20 ML IV ONE (08:50)
[2022-12-03] MEDS ORDERED: Xylocaine-Mpf 2% 5 Ml Vial ONE (08:50)
[2022-12-03] MEDS ORDERED: Decadron 4 MG INJ ONE (08:50)
[2022-12-03] MEDS ORDERED: Versed 2 MG/2 ML Injection ONE (08:50)
[2022-12-03] MEDS ORDERED: SUBLIMAZE 100 MCG/2 ML ONE (08:50)
[2022-12-03] MEDS ORDERED: Zofran 4 MG/2 ML VIAL ONE (08:50)
[2022-12-03] MEDS ORDERED: Ephedrine Sulfate 50 MG/ML ONE (09:55)
[2022-12-03] MEDS ORDERED: PHENYLEPHRINE HCL ONE (10:03)
[2022-12-03] MEDS ORDERED: Hydromorphone 1 mg/ml Injection ONE (10:20)
--- NOTE | 2022-12-03 10:22 | XRAY ---
Indication: Right foot hardware removal. Intraoperative fluoroscopy provided for 1 minute 10 seconds. 12 digital spot images submitted for interpretation ultimately demonstrates removal 1st tarsometatarsal transverse screws and medial fixation plate. 1st tarsometatarsal vertical screw has been exchanged. Correlate with intraoperative findings/report.
[2022-12-03] MEDS ORDERED: TORAdol 30 mg Injection ONE (10:30)
[2022-12-03 11:21] VITALS: BP 132/89; PULSE 97; O2SAT 98
--- NOTE | 2022-12-03 11:42 | XRAY ---
1 minute and 10 seconds fluoroscopy time in surgery for hadware removal and replacement right 1st toe.
--- NOTE | 2022-12-03 14:24 | OP ---
SURGERY DATE: 12/03/2022 0901 PREOPERATIVE DIAGNOSES: 1) Painful hardware right foot. 2) Pain right foot. POSTOPERATIVE DIAGNOSES: 1) Painful hardware right foot. 2) Pain right foot. PROCEDURE: Removal of painful orthopedic hardware right foot. SURGEON: John Dalton DPM. BEAM WORKER: None. ANESTHESIA: General plus preoperative ankle block consisting of 30 cc of a 1:1 mixture of 1% lidocaine plain and 0.5% bupivacaine plain injected in an ankle block-type fashion to the right lower extremity. HEMOSTASIS: Thigh tourniquet set to 300 mm of Mercury for 28 total tourniquet minutes. ESTIMATED BLOOD LOSS: Less than 5 cc. MATERIALS: 4-0 Monocryl, 3-0 Nylon. INJECTABLES: 30 cc of a 1:1 mixture of 1% lidocaine plain and 0.5% bupivacaine plain injected in an ankle block-type fashion. INDICATION FOR PROCEDURE: Jerome is a very pleasant 42-year-old female who recently underwent a metadductus correction as well as a Tailor's bunion. The patient had surgical intervention on 09/17/2022. Following her procedure, she was able to return to work however started developing some pain at the medial aspect of the first ray this was noted to be in correlation with some backing out of hardware at the first metatarsocuneiform articulation which was fused at this time. Discussion with patient in regards to options and the patient wanted to proceed with removal of hardware. The patient does have pain associated with the hardware as a result of it backing out. At this time it warranted being taken and left out at this time. With that being said, the patient understands all risks, complications and benefits of surgical intervention including but not limited to infection, hematoma, seroma, possibility of delayed wound healing, nonwound healing, possibility of postoperative pain, possibility of need for surgical intervention at a later date. However, I do believe that this drives a majority of the patient's pain at this time. Plenty of time was allowed for the patient to ask questions were answered to the patient's satisfaction. No guarantees were provided as to the outcome of surgical intervention. It is with that we decided to proceed. DESCRIPTION OF PROCEDURE AND FINDINGS: The patient was brought into the operating room and placed on the operating room table in the supine position. At this time adequate general anesthesia was administered until the patient was sedated. At this time the right lower extremity was prepped and draped in the typical sterile fashion. A well-padded thigh tourniquet was applied to the right thigh and the tourniquet was set to 300 mm of Mercury. At this time attention was directed to the right foot where under fluoroscopic guidance an incision site was planned just plantar to the previous surgical scar. At this time an Esmarch was utilized to exsanguinate the leg and an incision was made being careful not to damage any neurovascular structures until the plate and screws were encountered. At this time attention was directed to the dorsal distal aspect of the first metatarsal where a cannulated screw was identified and utilizing a K-wire it was targeted, removed and replaced with a 28 mm cannulated screw of the same diameter of 4.0. At this time 500 ml of Exparel through Tip or Skip was utilized to flush the surgical site. 4-0 Monocryl was utilized to coapt the subcutaneous edges in simple buried interrupted-type fashion and horizontal mattress-type fashion was performed at the skin as well as a simple stitch at the dorsal incision site. Copious amounts of sterile saline were then utilized to flush the surgical site. An injection consisting of 30 cc of a 1:1 mixture of 1% lidocaine plain and 0.5% bupivacaine plain was injected in an ankle block-type fashion. The patient was reversed from anesthesia. At this time a dressing consisting of Betadine, Adaptic, 4x4, Kerlix and PATRIC was applied to the patient's right lower extremity. The patient was returned to the postoperative anesthesia care unit with vital signs stable and vascular status intact. The patient handled the anesthesia as well as the procedure without significant complication. Postoperative orders as indicated in the patient's discharge chart.
== END 2022-12-03 11:35 | disposition home or self-care (01) ==
LOC: SDC 06:16
PROVIDERS: ATTEND Podiatrist Foot & Ankle Surgery
DX: T84.84XA Pain due to internal orthopedic prosthetic devices, implants and grafts, initial encounter (principal); M79.671 Pain in right foot
CPT/HCPCS: 36415; 73630; 76000; 80053; 85027; C1713; J0690; J1100; J1170; J1885; J2250; J2370; J2405; J2704; J3010; A9270-GY

== ENCOUNTER 2023-02-11 06:13 | Day surgery (SDC) | payer BC, OTHER ==
[~2023-02-11 06:13] MED LIST: Marcaine Mpf 0.5% Vial 30 Ml ONE; Xylocaine 1% Vial 30 ML PF IJ ONE
[2023-02-11] MEDS ORDERED: Transderm Scop 1.5MG Patch TOP ONE (06:25)
[2023-02-11] MEDS ORDERED: Lactated Ringers 1,000 ML IV SCH (06:30)
[2023-02-11] MEDS ORDERED: CEFAZOLIN 2 GM-D5W BAG** 2 GM/50 ML ML IV SCH (06:30)
[2023-02-11] MEDS ORDERED: Marcaine Mpf 0.5% Vial 30 Ml ONE (07:02)
[2023-02-11] MEDS ORDERED: Xylocaine 1% Vial 30 ML PF IJ ONE (07:02)
[2023-02-11] MEDS ORDERED: Versed 2 MG/2 ML Injection ONE (09:05)
[2023-02-11] MEDS ORDERED: DIPRIVAN 200 MG/20 ML IV ONE ×2 (09:05→09:35)
[2023-02-11] MEDS ORDERED: SUBLIMAZE 100 MCG/2 ML ONE ×2 (09:05→10:07)
[2023-02-11 11:55] VITALS: BP 128/91; PULSE 78; O2SAT 98
--- NOTE | 2023-02-11 15:39 | OP ---
SURGERY DATE: 02/11/2023 SURGERY TIME: 900 PREOPERATIVE DIAGNOSIS: 1. PAINFUL RIGHT FOOT. 2. PAINFUL HARDWARE INSITU. 3. METATARSAL DEFORMITY. POSTOPERATIVE DIAGNOSIS: 1. PAINFUL RIGHT FOOT. 2. PAINFUL HARDWARE INSITU. 3. METATARSAL DEFORMITY. PROCEDURE: 1. Removal of hardware and 5th metatarsal head resection. SURGEON: John Dalton D.P.M. FOURTH OFFICER: None. ANESTHESIA: MAC with an intraoperative block. See injectables for details. HEMOSTASIS: A pressure dressing. ESTIMATED BLOOD LOSS: Less than 5 cc. MATERIALS: 4-0 Monocryl, 3-0 Nylon. INJECTABLES: 30 cc of a 1:1 mixture of 1% Lidocaine plain and 0.5% Bupivicaine plain injected in a mini Amado block type fashion. INDICATIONS FOR PROCEDURE: Jerome is a very pleasant 42 year-old patient well known to my service for correction of a metadductus deformity. Patient has had subsequent issues with hardware and as a result, there has been some irritation. It is because of this, patient would like to proceed with removal of hardware. The patient understands all risks, benefits, and complications of surgical intervention at this time including, but not limited to, infection; hematoma; seroma; possibility of delayed wound healing; non-wound healing; possibility of need for surgical intervention at a later date. It is with that, we decided to proceed. DESCRIPTION OF PROCEDURE: The patient was brought into the OR. Placed on the OR table in the supine position. At this time, MAC was administered until the patient was sedated. At this time, the right lower extremity was prepped and draped in the typical sterile fashion and lowered onto the surgical field. At this time, a 30 cc block of a 1:1 mixture of 1% Lidocaine plain and 0.5% Bupivicaine plain was injected in a mini Amado block type fashion to the right foot. Following this, an incision was carried down at the level of the plate utilizing a 10 blade. Following this, a 15 blade was utilized to resect any of the scar tissue out of the surgical site being careful not to damage any neurovascular structures along the way. At this time, hardware was readily adherent which was removed from the distal portion of the bone. The proximal screw was then removed and then, a portion of the plate that was exterior to the bone was then removed. Following this, an 18 mm sagittal saw was then utilized to resect the 5th metatarsal head. Any prominences were felt or any sharp edges which were then filed down with a hand rasp. Following this, copious amounts of sterile saline were utilized to flush the surgical site. 4-0 Monocryl was utilized to coapt the subcutaneous skin edges and the skin was coapted utilizing 3-0 Nylon in a horizontal mattress type fashion. A dressing consisting of Betadine, Adaptic, 4 X 4, Kerlix, and David was then applied to the right lower extremity. The patient then was reversed from anesthesia and returned to the PACU with vital signs stable and vascular status intact. The patient handled the anesthesia as well as the procedure without significant complication. Postoperative orders as indicated in the patient's discharge chart.
--- NOTE | 2023-02-11 16:19 | XRAY ---
Indication: Right foot hardware removal. Intraoperative fluoroscopy provided for 25 seconds. 7 digital spot images image for interpretation ultimately demonstrates amputation head 5th metatarsal with postsurgical changes. Elsewhere 1st-3rd tarsometatarsal fusion with intact hardware. Correlate with intraoperative findings/report.
--- NOTE | 2023-02-11 17:25 | XRAY ---
25 seconds of fluoroscopy was used in surgery for hardware removal of right foot.
== END 2023-02-11 11:13 | disposition home or self-care (01) ==
LOC: SDC 06:13
PROVIDERS: ATTEND Podiatrist Foot & Ankle Surgery
DX: T84.84XA Pain due to internal orthopedic prosthetic devices, implants and grafts, initial encounter (principal); M21.961 Unspecified acquired deformity of right lower leg; M79.671 Pain in right foot
CPT/HCPCS: 73630; 76000; J0690; J2001; J2250; J2704; J3010; A9270-GY